=== PATIENT | male | born 1990 | race American Indian/Alaskan Native ===

== ENCOUNTER 2016-10-28 08:17 | Emergency (ER) | payer OTHER, SELFPAY ==
[~2016-10-28] VITALS: Ht 190.5 cm; Wt 108.9 kg
[2016-10-28] MEDS ORDERED: DIPHENHYDRAMINE 50 MG/ML, 1ML IVPush ONE (09:00)
[2016-10-28] MEDS ORDERED: METOCLOPRAMIDE 5 MG/ML, 2ML IVPush ONE (09:00)
[2016-10-28] MEDS ORDERED: KETOROLAC 30 MG/1 ML IVPush ONE (09:00)
[2016-10-28] MEDS ORDERED: SODIUM CHLORIDE FLUSH 10ML SYR IVF ONE (09:00)
[2016-10-28] MEDS ORDERED: SODIUM CHLORIDE 0.9% 1,000ML IVBOLUS ONE (09:00)
[2016-10-28] MEDS ORDERED: DIPHENHYDRAMINE 50 MG/ML, 1ML ONE (09:33)
[2016-10-28] MEDS ORDERED: KETOROLAC 30 MG/1 ML ONE (09:33)
[2016-10-28] MEDS ORDERED: METOCLOPRAMIDE 5 MG/ML, 2ML ONE (09:33)
[2016-10-28] MEDS ORDERED: morphine SULFATE 10 MG/ML, 1ML IVPush ONE (10:00)
[2016-10-28] MEDS ORDERED: morphine SULFATE 10 MG/ML, 1ML ONE (10:20)
[2016-10-28 11:07] VITALS: BP 132/95
== END 2016-10-28 11:19 | disposition home or self-care (01) ==
LOC: ED 09:48
DX: G44.229 Chronic tension-type headache, not intractable (principal); F17.210 Nicotine dependence, cigarettes, uncomplicated
CPT/HCPCS: 70450; 96361; 96374; 96375; 99284; J1200; J1885; J2270; J2765; J7030

== ENCOUNTER 2020-09-05 14:00 | Emergency (ER) | payer MEDICAID ==
[~2020-09-05] VITALS: Ht 190.5 cm; Wt 122.2 kg
--- NOTE | 2020-09-05 15:26 | NUR ---
PT IN IMAGING.
[2020-09-05 16:17] VITALS: BP 115/74
== END 2020-09-05 16:42 | disposition home or self-care (01) ==
LOC: ED 15:59
DX: S83.011A Lateral subluxation of right patella, initial encounter (principal); S86.811A Strain of other muscle(s) and tendon(s) at lower leg level, right leg, initial encounter; M17.11 Unilateral primary osteoarthritis, right knee; F17.200 Nicotine dependence, unspecified, uncomplicated; W22.8XXA Striking against or struck by other objects, initial encounter; Y93.89 Activity, other specified; Y92.89 Other specified places as the place of occurrence of the external cause; Y99.8 Other external cause status
CPT/HCPCS: 99283

== ENCOUNTER 2020-10-13 05:19 | Emergency (ER) | payer MEDICAID ==
[~2020-10-13] VITALS: Ht 188 cm; Wt 120.0 kg
[2020-10-13] MEDS ORDERED: MORPHINE SULFATE 4 MG/ML, 1ML ONE (05:51)
[2020-10-13] MEDS ORDERED: NITROGLYCERIN SINGLE TAB 0.4 MG SL ONE (05:51)
[2020-10-13] MEDS ORDERED: ONDANSETRON 2MG/ML, 2ML ONE (05:51)
[2020-10-13 05:56] LABS: BASOPHILS % (AUTO) 1 % (0-1); EOSINOPHILS % (AUTO) 1 % (1-7); LYMPHOCYTES % (AUTO) 9 % (22-44); MEAN CORPUSCULAR HEMOGLOBIN 30.9 pg (27.5-34.5); MEAN CORPUSCULAR HGB CONC 34.2 g/dL (33.2-36.2); MEAN PLATELET VOLUME 7.9 fL (7.4-10.4); MONOCYTES % (AUTO) 10 % (2-9); NEUTROPHILS % (AUTO) 80 % (42-75); PLATELET COUNT 246 x10^3/uL (130-400); RED CELL DISTRIBUTION WIDTH 14.2 % (9.4-14.8)
[2020-10-13 05:58] LABS: MD NO
[2020-10-13] MEDS ORDERED: SODIUM CHLORIDE FLUSH 10ML SYR IVF ONE (06:00)
[2020-10-13] MEDS ORDERED: SODIUM CHLORIDE 0.9% 1,000ML IVBOLUS ONE (06:00)
[2020-10-13] MEDS ORDERED: ONDANSETRON 2MG/ML, 2ML IVPush ONE (06:00)
[2020-10-13] MEDS ORDERED: MORPHINE SULFATE 4 MG/ML, 1ML IVPush PRN (06:00)
[2020-10-13] MEDS ORDERED: NITROGLYCERIN SINGLE TAB 0.4 MG SL PRN (06:00)
[2020-10-13 06:09] LABS: ALANINE AMINOTRANSFERASE 53 U/L (12-78); ALBUMIN 4.3 g/dL (3.4-5.0); ANION GAP 7 mmol/L (5-15); CALCIUM 9.4 mg/dL (8.5-10.1); CHLORIDE 106 mmol/L (98-107); CREATININE 0.82 mg/dL (0.7-1.3)
--- NOTE | 2020-10-13 06:10 | NUR ---
Pt to ER with CP, that radiates up to throat. Pt with occasional SOB, denies nausea. Pt to room, on monitor, IV placed, labs sent. Pt medicated per order, no relief with NTG or morphine. Covid swab done and to lab. CXR complete. Pt on monitor. Will monitor.
[2020-10-13 06:14] LABS: ALKALINE PHOSPHATASE 105 U/L (45-117); BILIRUBIN,TOTAL 0.9 mg/dL (0.2-1.0); TOTAL PROTEIN 8.6 g/dL (6.4-8.2); TROPONIN I 0.016 ng/mL (0.000-0.045)
[2020-10-13] MEDS ORDERED: MAALOX/HYOSCYAMINE/LIDOCAINE 45 ML BTL ONE (06:22)
[2020-10-13] MEDS ORDERED: MAALOX/HYOSCYAMINE/LIDOCAINE 45 ML BTL PO ONE (06:30)
[2020-10-13] MEDS ORDERED: KETOROLAC 30 MG/1 ML IVPush ONE (06:30)
[2020-10-13] MEDS ORDERED: KETOROLAC 30 MG/1 ML ONE (06:39)
--- NOTE | 2020-10-13 07:00 | NUR ---
report from Víctor MARTÍNEZ.
--- NOTE | 2020-10-13 07:48 | NUR ---
pt resting on gurney with spouse at bedside. ed provider at bedside to discuss poc. call light within reach. no further needs. all monitors in place.
[2020-10-13] MEDS ORDERED: LORazepam 2 MG/ML, 1ML ONE (07:51)
[2020-10-13] MEDS ORDERED: LORazepam 2 MG/ML, 1ML IVPush ONE (08:00)
--- NOTE | 2020-10-13 08:46 | NUR ---
pt states the Ativan helped and his CP is gone. will notify MD. All monitors in place and spouse at bedside. call light within reach.
[2020-10-13 09:44] VITALS: BP 128/56
--- NOTE | 2020-10-13 09:45 | NUR ---
PT D/C WITH STEADY GAIT. EDUCATED THE PATIENT THAT ALTHOUGH WE DID NOT FIND ANYTHING TODAY THAT WAS CONCERNING FOR HIS HEART, HE NEEDS TO BE SEEN IF HE HAS CHEST PAIN AGAIN. PT VERBALIZED UNDERSTANDING.
== END 2020-10-13 09:46 | disposition home or self-care (01) ==
LOC: ED 05:31
DX: R07.9 Chest pain, unspecified (principal); Z20.822 Contact with and (suspected) exposure to COVID-19; R00.0 Tachycardia, unspecified; I51.7 Cardiomegaly
CPT/HCPCS: 36415; 71045; 80053; 84484; 85025; 85379; 93005; 96361; 96374; 96375; 99285; J1885; J2060; J2270; J2405; J7030; U0003

== ENCOUNTER 2020-10-13 22:49 | Emergency (ER) | payer MEDICAID ==
[~2020-10-13] VITALS: Ht 188 cm; Wt 123.5 kg
[2020-10-13] MEDS ORDERED: LORazepam 1MG TABLET ONE (23:23)
[2020-10-13] MEDS ORDERED: KETOROLAC 60 MG/2 ML ONE (23:23)
[2020-10-13] MEDS ORDERED: LORazepam 1MG TABLET PO ONE (23:30)
[2020-10-13] MEDS ORDERED: KETOROLAC 60 MG/2 ML IM ONE (23:30)
--- NOTE | 2020-10-13 23:40 | NUR ---
Pt to ER for c/o CP. Pt was seen earlier today for same, and DC from the ER this AM. Pt with left chest pain, discomfort in throat. Pt states pain worse with palp and deep breathing. EKG done in triage. Pt to room, on monitor Pt medicated per order. Blood sent to lab. Pt states feeling better, watching TV, laughing. Warm blanket given. will monitor.
[2020-10-13 23:51] LABS: TROPONIN I 0.018 ng/mL (0.000-0.045)
[2020-10-14 00:26] VITALS: BP 139/90
--- NOTE | 2020-10-14 00:27 | NUR ---
Pt calm, cooperative and states feeling better. Patient/Caregiver given discharge instructions and they have confirmed that they understand the instructions. Patient ambulatory with steady gait. Medications reviewed with patient and states understanding. Pt instructed no to drive home
== END 2020-10-14 00:31 | disposition home or self-care (01) ==
LOC: ED 23:54
DX: R07.89 Other chest pain (principal); F41.1 Generalized anxiety disorder; R94.31 Abnormal electrocardiogram [ECG] [EKG]; F17.200 Nicotine dependence, unspecified, uncomplicated
CPT/HCPCS: 36415; 84484; 93005; 96372; 99284; J1885